=== PATIENT | male | born 1960 | race Hispanic/Latino ===

== ENCOUNTER 2021-11-25 08:31 | Outpatient (CLI) | payer OTHER ==
--- NOTE | 2021-11-25 09:46 | XRay Report ---
LUMBAR SPINE 3 VIEWS INDICATION / CLINICAL INFORMATION: BACK PAIN. COMPARISON: None available. FINDINGS: VERTEBRAE: No fracture. No significant malalignment. DISC SPACES:Mild discogenic degenerative disease L3-5. Disc replacement projects in expected position L5-S1. FACET JOINTS:Moderate facet degenerative disease L5-S1 ADDITIONAL FINDINGS: None. IMPRESSION: 1. Degenerative changes of lumbar spine. 2. L5-S1 disc replacement satisfactory postop appearance Signer Name: Armen Phillips MD Signed: 11/25/2021 9:41 AM Workstation Name: [id number]
--- NOTE | 2021-11-25 09:47 | XRay Report ---
Bilateral hips INDICATION: Hip pain FINDINGS: Moderate degenerative change bilateral hips and joint space narrowing. Sacrum and sacroilia c joints appear normal. Superior and inferior pubic rami appear intact. No acute fracture or dislocat ion. Signer Name: Sandeep Howard MD Signed: 11/25/2021 9:43 AM Workstation Name: [id number]
== END 2021-11-25 08:32 | disposition home or self-care (01) ==
LOC: XRAY 08:31
PROVIDERS: ATTEND Internal Medicine
DX: M16.0 Bilateral primary osteoarthritis of hip (principal); M47.817 Spondylosis without myelopathy or radiculopathy, lumbosacral region
CPT/HCPCS: 72100; 73521